=== PATIENT | female | born 1995 | race Hispanic/Latino ===

== ENCOUNTER 2019-12-23 20:18 | Emergency (ER) | payer OTHER ==
[~2019-12-23] VITALS: Ht 154.9 cm; Wt 65.9 kg
[2019-12-23 20:25] VITALS: BP 119/75
[2019-12-23] MEDS ORDERED: AMOX/K CLAV875 M1 PO (20:44)
== END 2019-12-23 21:00 | disposition home or self-care (01) ==
LOC: ED 20:18
DX: S01.351A Open bite of right ear, initial encounter (principal); W54.0XXA Bitten by dog, initial encounter; Y93.89 Activity, other specified; Y92.009 Unspecified place in unspecified non-institutional (private) residence as the place of occurrence of the external cause

== ENCOUNTER 2020-05-05 18:36 | Emergency (ER) | payer BC, OTHER ==
[~2020-05-05] VITALS: Ht 154.9 cm; Wt 58.0 kg
[~2020-05-05 18:36] MED LIST: AMOX/K CLAV875 M1 PO
[2020-05-05 19:37] LABS: URINE BILIRUBIN - DIPSTICK NEGATIVE (NEGATIVE); URINE BLOOD DIPSTICK LARGE (NEGATIVE); URINE COLOR YELLOW; URINE GLUCOSE - DIPSTICK NEGATIVE (NEGATIVE); URINE KETONE >=80 mg/dL (NEGATIVE); URINE LEUK ESTERASE NEGATIVE (NEGATIVE); URINE NITRITE - DIPSTICK NEGATIVE (Negative); URINE PROTEIN - DIPSTICK NEGATIVE (NEG-TRACE); URINE SPECIFIC GRAVITY >=1.030; URINE UROBILINOGEN - DIPSTICK 0.2 E.U./dL (0.2)
[2020-05-05 19:39] LABS: URINE SQUAMOUS EPITHELIAL CELL FEW EPI/hpf (0-FEW); URINE WBC 0-2 WBC/hpf (0-5)
[2020-05-05 20:22] VITALS: BP 95/54
[2020-05-05] MEDS ORDERED: ZOFRAN4 MG/TAB PO (20:22)
== END 2020-05-05 20:31 | disposition home or self-care (01) | DRG 833 ==
LOC: ED 18:36
DX: O21.9 Vomiting of pregnancy, unspecified (principal); O99.891 Other specified diseases and conditions complicating pregnancy; R31.9 Hematuria, unspecified; Z3A.01 Less than 8 weeks gestation of pregnancy